=== PATIENT | female | born 1995 | race African-American/Black ===

== ENCOUNTER 2017-05-26 11:01 | Emergency (ER) | payer OTHER ==
[2017-05-26 12:17] LABS: URINE HCG POC HCG NEGATIVE (Negative)
[2017-05-26 12:52] LABS: CLARITY,URINE CLEAR; COLOR,URINE YELLOW; GLUCOSE,URINE 100 mg/dL (NEG)
[2017-05-26 12:53] LABS: BACTERIA,URINE FEW /HPF (0-FEW); BILIRUBIN,URINE NEGATIVE (NEG); NITRITE,URINE NEGATIVE (NEG); PH,URINE 8.5; PROTEIN,URINE TRACE mg/dL (NEG-TRACE); RBC,URINE OCC /HPF (0-2); SQUAMOUS EPITHELIAL CELL,UR MANY /LPF; UROBILINOGEN,URINE 0.2 mg/dL (0.2 mg/dL)
[2017-05-26] MEDS: cefTRIAXone IM 250 MG VIAL IM (13:03)
[2017-05-26] MEDS: AZITHROMYCIN 250 MG TABLET. PO (13:06)
[2017-05-26] MEDS: metroNIDAZOLE 500 MG TABLET PO (13:07)
== END 2017-05-26 13:20 | disposition home or self-care (01) ==
LOC: ER 11:01
DX: J02.8 Acute pharyngitis due to other specified organisms (principal); B97.89 Other viral agents as the cause of diseases classified elsewhere; Z20.2 Contact with and (suspected) exposure to infections with a predominantly sexual mode of transmission
CPT/HCPCS: 81001; 81025; 87491; 87591; 96372; 99284; J0696; Q0144

== ENCOUNTER 2017-08-09 10:50 | Emergency (ER) | payer OTHER ==
[2017-08-09 11:21] LABS: URINE HCG POC HCG NEGATIVE (Negative)
[2017-08-09 11:25] LABS: BILIRUBIN,URINE NEGATIVE (NEG); CLARITY,URINE CLEAR; COLOR,URINE YELLOW; GLUCOSE,URINE NEGATIVE (NEG); NITRITE,URINE NEGATIVE (NEG); PH,URINE 6.5; PROTEIN,URINE NEGATIVE (NEG-TRACE)
[2017-08-09 11:36] LABS: BACTERIA,URINE FEW /HPF (0-FEW); RBC,URINE OCC /HPF (0-2); SQUAMOUS EPITHELIAL CELL,UR MOD /LPF
[2017-08-09] MEDS: cefTRIAXone IM 250 MG VIAL IM (14:10)
[2017-08-09] MEDS: metroNIDAZOLE 500 MG TABLET PO (14:10)
[2017-08-09] MEDS: AZITHROMYCIN 250 MG TABLET. PO (14:10)
[2017-08-10 13:25] LABS: CHLAMYDIA PROBE Negative (Negative); GC PROBE Positive (Negative)
== END 2017-08-09 14:23 | disposition home or self-care (01) ==
LOC: ER 14:23
DX: N39.0 Urinary tract infection, site not specified (principal); Z20.2 Contact with and (suspected) exposure to infections with a predominantly sexual mode of transmission
CPT/HCPCS: 81001; 81025; 87086; 87491; 87591; 96372; 99284-25; J0696; Q0111; Q0144

== ENCOUNTER 2018-04-11 15:56 | Emergency (ER) | payer OTHER ==
[~2018-04-11] VITALS: Ht 152.4 cm; Wt 42.3 kg
[~2018-04-11 15:56] MED LIST: ACET325T9 PO; AZIT1PAC PO; NITR100C62 PO; SULF1TAB24 PO
[2018-04-11 16:45] VITALS: BP 109/59
[2018-04-11] MEDS ORDERED: METH4TAB2 PO (17:11)
[2018-04-11] MEDS ORDERED: AZIT250T6 PO (17:11)
[2018-04-11] MEDS ORDERED: IBUP-1007 PO (17:12)
--- NOTE | 2018-04-11 17:12 | PHYS DOC ---
Past Medical History Past Medical History: STD Additional Past Medical Histor: trichomoniaisis Past Surgical History: Alcohol Use: None Drug Use: None Adult General Chief Complaint Chief Complaint: COUGH HPI HPI Patient is a 22 year old female who presents with her last week has had asthma for years, headache, cough with yellow mucus. Patient has not been taking any medications. Review of Systems Review of Systems Constitutional: fever or chills [] Eyes: Denies change in visual acuity, redness, or eye pain [] HENT: nasal congestion or denies sore throat [] Respiratory: cough or denies shortness of breath [] Cardiovascular: No additional information not addressed in HPI [] GI: Denies abdominal pain, nausea, vomiting, bloody stools or diarrhea [] : Denies dysuria or hematuria [] Musculoskeletal: Denies back pain or joint pain [] Integument: Denies rash or skin lesions [] Neurologic: Denies headache, focal weakness or sensory changes [] Endocrine: Denies polyuria or polydipsia [] All other systems were reviewed and found to be within normal limits, except as documented in this note. Allergies Allergies Allergies Coded Allergies Type Severity Reaction Last Updated Verified No Known Drug Allergies 10/03/15 No Physical Exam Physical Exam Constitutional: Well developed, well nourished, no acute distress, non-toxic appearance. [] HENT: Normocephalic, atraumatic, bilateral external ears normal, oropharynx moist, no oral exudates, nose normal. bilateral boggy tympanics. sinus tenderness. [] Eyes: PERRLA, EOMI, conjunctiva normal, no discharge. [] Neck: Normal range of motion, no tenderness, supple, no stridor. [] Cardiovascular:Heart rate regular rhythm, no murmur [] Lungs & Thorax: Bilateral breath sounds clear to auscultation [] Abdomen: Bowel sounds normal, soft, no tenderness, no masses, no pulsatile masses. [] Skin: Warm, dry, no erythema, no rash. [] Back: No tenderness, no CVA tenderness. [] Extremities: No tenderness, no cyanosis, no clubbing, ROM intact, no edema. [] Neurologic: Alert and oriented X 3, normal motor function, normal sensory function, no focal deficits noted. [] Psychologic: Affect normal, judgement normal, mood normal. [] Current Patient Data Vital Signs Vital Signs Date Time Temp Pulse Resp B/P (MAP) Pulse Ox O2 Delivery O2 Flow Rate FiO2 04/11/18 16:45 98.7 84 16 109/59 (76) 96 Room Air 98.7 EKG EKG [] Radiology/Procedures Radiology/Procedures [] Course & Med Decision Making Course & Med Decision Making Patient is a 22 year old female who presents with her last week has had asthma for years, headache, cough with yellow mucus. Patient has not been taking any medications. Alert and oriented. Looks the same gait. Speaks in full clear sentences. Patient is in no respiratory distress. Bilateral ear tympanic are boggy in color. Lungs are clear to auscultation lobes. Throat is pink without exudates. Abdomen is soft and nontender. Patient denies nausea, vomiting, diarrhea, fevers. Patient does have sinus congestion with some tenderness to her sinuses with palpation. Patient received antibiotic prescription and Medrol Dosepak is told to continue drinking plenty of fluids and use Tylenol or ibuprofen for pain relief. Patient is to follow-up with her primary care provider as soon as possible. Dragon Disclaimer Dragon Disclaimer This electronic medical record was generated, in whole or in part, using a voice recognition dictation system. Departure Departure Impression: Primary Impression: URI (upper respiratory infection) Disposition: 01 HOME, SELF-CARE Condition: STABLE Referrals: MONICO VILLEDA MD (PCP) Patient Instructions: Upper Respiratory Infection, Adult Additional Instructions: Follow-up with her primary care in next 3-5 days. Take medications as prescribed. Take Tylenol or ibuprofen every 46 hours. Drink plenty of fluids. Scripts Ibuprofen (IBUPROFEN) 600 Mg Tablet 600 MG PO PRN Q6HRS PRN for INFLAMMATION, #20 TAB Prov: JOE ELDRIDGE [employer]ACHINE 04/11/18 Methylprednisolone (MEDROL) 4 Mg Tab.ds.pk 1 PKG PO UD, #1 PKG Prov: JOE ELDRIDGE [employer]ACH[employer] 04/11/18 Azithromycin (AZITHROMYCIN TABLET) 250 Mg Tablet 1 PKG PO UD, #6 TAB Prov: JOE ELDRIDGE [employer] 04/11/18 Problem Qualifiers Primary Impression: URI (upper respiratory infection) URI type: unspecified URI Qualified Codes: J06.9 - Acute upper respiratory infection, unspecified BAFUSJOE SE[employer] TAPER MACHINE Apr 11, 2018 17:12
== END 2018-04-11 17:25 | disposition home or self-care (01) ==
LOC: ER 15:56
DX: J06.9 Acute upper respiratory infection, unspecified (principal); R51 Headache
CPT/HCPCS: 99283

== ENCOUNTER 2019-02-06 09:01 | Emergency (ER) | payer BC, MEDICAID, OTHER ==
[~2019-02-06] VITALS: Ht 154.9 cm; Wt 40.8 kg
[~2019-02-06 09:01] MED LIST changes: +AZIT250T6 PO; +IBUP-1007 PO; +METH4TAB2 PO
[2019-02-06] MEDS ORDERED: IV NORMAL SALINE 1000ML BAG 1,000 ML IV ONE (09:30)
[2019-02-06 09:55] LABS: BILIRUBIN,URINE NEGATIVE (NEG); CLARITY,URINE CLEAR; COLOR,URINE YELLOW; NITRITE,URINE NEGATIVE (NEG); PH,URINE 7.5; PROTEIN,URINE NEGATIVE (NEG-TRACE)
[2019-02-06 10:02] LABS: BASO % 0 % (0-3); EOS % 0 % (0-3); HEMATOCRIT 37.1 % (36.0-47.0); HEMOGLOBIN 12.3 g/dL (12.0-15.5); LYMPH % 34 % (24-48); MEAN CORPUSCULAR HEMOGLOBIN 28 pg (25-35); MEAN CORPUSCULAR HGB CONC 33 g/dL (31-37); MEAN CORPUSCULAR VOLUME 83 fL (79-100); MONO # 0.2 x10^3/uL (0.0-1.1); MONO % 8 % (0-9); NEUT # 1.8 x10^3/uL (1.8-7.7); NEUT % 58 % (31-73); PLATELET COUNT 200 x10^3/uL (140-400); RED BLOOD COUNT 4.46 x10^6/uL (3.50-5.40); RED CELL DISTRIBUTION WIDTH 13.5 % (11.5-14.5)
--- NOTE | 2019-02-06 10:02 | EKG ---
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
[2019-02-06 10:06] LABS: RBC,URINE OCC /HPF (0-2); SQUAMOUS EPITHELIAL CELL,UR FEW /LPF
[2019-02-06 10:07] LABS: BACTERIA,URINE FEW /HPF (0-FEW)
[2019-02-06 10:13] LABS: CALCIUM 8.9 mg/dL (8.5-10.1); CREATININE 0.5 mg/dL (0.6-1.0); GFR 183.4; POTASSIUM 3.8 mmol/L (3.5-5.1)
--- NOTE | 2019-02-06 10:18 | PHYS DOC ---
Past Medical History Past Medical History: STD, Other Additional Past Medical Histor: trichomoniaisis Past Surgical History: Alcohol Use: None Drug Use: None Adult General Chief Complaint Chief Complaint: ABDOMINAL PAIN HPI HPI Patient is a 23 year old AA female who presents to the ER with complaints of a syncopal episode yesterday while at work. Pt states she became hot all over then felt some pain in her lower abdomen and then she fainted but did not lose consciousness, pt states he was aware of what was happening the entire time. She denies hitting her head, pt states after she fainted she had a severe headache for a short while. She rested for a bit then went on to finish her work day. Pt denies any chest pain, palpitations, numbness, tingling, or weakness at this time. Pt states she took a test last night and there was possibly a faint positive outcome. She states she missed her last depo shot and has been having unprotected intercourse. Her LMP was sometime last month. She is 5, para 5, this would be her 6th . She currently denies any complaints. She denies any recent nausea, vomiting, diarrhea, fever, dysuria, hematuria, vaginal bleeding, or irregular vaginal discharge. She currently denies any pain. All other ROS is neg unless otherwise noted in HPI. Review of Systems Review of Systems See Above Current Medications Current Medications Current Medications Medications (Trade) Dose Ordered Sig/Xuan Start Time Stop Time Status Last Admin Dose Admin Sodium Chloride 1,000 ml @ 1,000 mls/hr 1X ONCE 02/06/19 09:30 02/06/19 10:29 DC 02/06/19 10:01 1,000 MLS/HR Allergies Allergies Allergies Coded Allergies Type Severity Reaction Last Updated Verified No Known Drug Allergies 10/03/15 No Physical Exam Physical Exam See Above Constitutional: Well developed, well nourished, no acute distress, non-toxic jaren earance. [] HENT: Normocephalic, atraumatic, bilateral external ears normal, nose normal. [] Eyes: PERRLA, EOMI, conjunctiva normal, no discharge. [] Neck: Normal range of motion, no stridor. [] Cardiovascular:Heart rate regular rhythm, no murmur [] Lungs & Thorax: Bilateral breath sounds clear to auscultation [] Abdomen: Bowel sounds normal, soft, no tenderness, no masses, no pulsatile masses. [] Skin: Warm, dry, no erythema, no rash. [] Back: No tenderness Extremities: No cyanosis, ROM intact, no edema. [] Neurologic: Alert and oriented X 3, no focal deficits noted. [] Psychologic: Affect normal, judgement normal, mood normal. [] Current Patient Data Vital Signs Vital Signs Date Time Temp Pulse Resp B/P (MAP) Pulse Ox O2 Delivery O2 Flow Rate FiO2 02/06/19 11:03 80 16 126/67 (86) 100 Room Air 02/06/19 09:10 98.4 98.4 Lab Values Laboratory Tests Test 02/06/19 09:45 02/06/19 09:47 02/06/19 09:52 Urine Collection Type Unknown Urine Color Yellow Urine Clarity Clear Urine pH 7.5 Urine Specific [place] 1.015 Urine Protein Negative mg/dL (NEG-TRACE) Urine Glucose (UA) Negative mg/dL (NEG) Urine Ketones (Stick) Negative mg/dL (NEG) Urine Blood Negative (NEG) Urine Nitrite Negative (NEG) Urine Bilirubin Negative (NEG) Urine Urobilinogen Dipstick 1.0 mg/dL (0.2 mg/dL) Urine Leukocyte Esterase Small (NEG) Urine RBC Occ /HPF (0-2) Urine WBC 1-4 /HPF (0-4) Urine Squamous Epithelial Cells Few /LPF Urine Bacteria Few /HPF (0-FEW) POC Urine HCG, Qualitative Hcg negative (Negative) White Blood Count 3.0 x10^3/uL (4.0-11.0) L Red Blood Count 4.46 x10^6/uL (3.50-5.40) Hemoglobin 12.3 g/dL (12.0-15.5) Hematocrit 37.1 % (36.0-47.0) Mean Corpuscular Volume 83 fL (79-100) Mean Corpuscular Hemoglobin 28 pg (25-35) Mean Corpuscular Hemoglobin Concent 33 g/dL (31-37) Red Cell Distribution Width 13.5 % (11.5-14.5) Platelet Count 200 x10^3/uL (140-400) Neutrophils (%) (Auto) 58 % (31-73) Lymphocytes (%) (Auto) 34 % (24-48) Monocytes (%) (Auto) 8 % (0-9) Eosinophils (%) (Auto) 0 % (0-3) Basophils (%) (Auto) 0 % (0-3) Neutrophils # (Auto) 1.8 x10^3/uL (1.8-7.7) Lymphocytes # (Auto) 1.0 x10^3/uL (1.0-4.8) Monocytes # (Auto) 0.2 x10^3/uL (0.0-1.1) Eosinophils # (Auto) 0.0 x10^3/uL (0.0-0.7) Basophils # (Auto) 0.0 x10^3/uL (0.0-0.2) Sodium Level 141 mmol/L (136-145) Potassium Level 3.8 mmol/L (3.5-5.1) Chloride Level 104 mmol/L (98-107) Carbon Dioxide Level 27 mmol/L (21-32) Anion Gap 10 (6-14) Blood Urea Nitrogen 8 mg/dL (7-20) Creatinine 0.5 mg/dL (0.6-1.0) L Estimated GFR (Cockcroft-Gault) 183.4 BUN/Creatinine Ratio 16 (6-20) Glucose Level 90 mg/dL (70-99) Calcium Level 8.9 mg/dL (8.5-10.1) Total Bilirubin 0.2 mg/dL (0.2-1.0) Aspartate Amino Transferase (AST) 8 U/L (15-37) L Alanine Aminotransferase (ALT) 7 U/L (14-59) L Alkaline Phosphatase 42 U/L (46-116) L Total Protein 7.7 g/dL (6.4-8.2) Albumin 4.2 g/dL (3.4-5.0) Albumin/Globulin Ratio 1.2 (1.0-1.7) Serum Test, Qualitative Negative (NEG) Laboratory Tests 02/06/19 09:52 Laboratory Tests 02/06/19 09:52 EKG EKG 0929- SR rate 70, no STEMI read by Dr. Tovar[] Radiology/Procedures Radiology/Procedures Orthostatic BPs negative, pt asymptomatic with evaluation.[] PROCEDURE: CHEST PA & LATERAL CHEST PA LATERAL History: Syncopal episode yesterday with chest tightness. Comparison: None. Findings: The cardiomediastinal silhouette is normal. Pulmonary vasculature is normal. The lungs are clear. No pleural effusion or pneumothorax is seen. There is no acute bone abnormality. IMPRESSION: No acute cardiopulmonary process. Course & Med Decision Making Course & Med Decision Making Pertinent Labs and Imaging studies reviewed. (See chart for details) Pt is a 23 year old female who presents for an evaluation following a syncopal episode yesterday at work. Pt reports concerns of . UCG negative CBC: WBC 3.0 otherwise unremarkable, CMP unremarkable, UA unremarkable, UCG negative, HCG qual negative Pt was given 1L of NS in the ER. VSS, EKG no acute changes, CXR normal. [] Dragon Disclaimer Dragon Disclaimer This electronic medical record was generated, in whole or in part, using a voice recognition dictation system. Departure Departure Impression: Primary Impression: Episode of syncope Additional Impression: Negative test Disposition: HOME, SELF-CARE Condition: STABLE Referrals: MONICO VILLEDA MD (PCP) Patient Instructions: Syncope, [id number] Additional Instructions: Increase clear fluids and rest. Both blood and urine tests were negative today. Follow up with your primary care doctor in 1-2 days. Return to the ER if symptoms worsen. Problem Qualifiers Primary Impression: Episode of syncope Syncope type: unspecified Qualified Codes: R55 - Syncope and collapse NANCY SALMON BAR HOST/HOSTESS Feb 06, 2019 10:18
[2019-02-06 10:25] LABS: ALBUMIN 4.2 g/dL (3.4-5.0); ALBUMIN/GLOBULIN RATIO 1.2 (1.0-1.7); TOTAL BILIRUBIN 0.2 mg/dL (0.2-1.0); TOTAL PROTEIN 7.7 g/dL (6.4-8.2)
--- NOTE | 2019-02-06 10:41 | RAD ---
CHEST PA LATERAL History: Syncopal episode yesterday with chest tightness. Comparison: None. Findings: The cardiomediastinal silhouette is normal. Pulmonary vasculature is normal. The lungs are clear. No pleural effusion or pneumothorax is seen. There is no acute bone abnormality. IMPRESSION: No acute cardiopulmonary process. Electronically signed by: John Ferguson MD (02/06/2019 10:38 AM) [id number]
[2019-02-06 11:03] VITALS: BP 126/67
[2019-02-06 11:16] LABS: PREG TEST PT QUAL NEGATIVE (NEG)
== END 2019-02-06 11:26 | disposition home or self-care (01) ==
LOC: ER 09:01
DX: R55 Syncope and collapse (principal); Z32.02 Encounter for pregnancy test, result negative; R10.30 Lower abdominal pain, unspecified; R51 Headache; R07.89 Other chest pain
CPT/HCPCS: 36415; 71046; 80053; 81001; 81025; 84703; 85025; 87086; 93005; 96360; 99285; J7030

== ENCOUNTER 2019-02-22 13:25 | Emergency (ER) | payer MEDICAID ==
[~2019-02-22] VITALS: Ht 154.9 cm; Wt 41.3 kg
[2019-02-22 13:50] VITALS: BP 109/52
[2019-02-22 14:09] LABS: BILIRUBIN,URINE NEGATIVE (NEG); CLARITY,URINE CLEAR; COLOR,URINE YELLOW; NITRITE,URINE NEGATIVE (NEG); PROTEIN,URINE NEGATIVE (NEG-TRACE)
[2019-02-22 14:24] LABS: BACTERIA,URINE 0 /HPF (0-FEW); RBC,URINE OCC /HPF (0-2); SQUAMOUS EPITHELIAL CELL,UR OCC /LPF
--- NOTE | 2019-02-22 14:41 | PHYS DOC ---
Past Medical History Past Medical History: STD, Other Additional Past Medical Histor: trichomoniaisis Past Surgical History: Additional Information: black and milds Alcohol Use: Occasionally Drug Use: None Adult General Chief Complaint Chief Complaint: PAIN ON URINATION HPI HPI Patient is a 23 year old female who presents with low mid abdominal pain and burning with urination. Patient states she was here 2 weeks ago did not follow up with any doctors. She states she went to [facility] who tested her for a transmitted diseases. She states she did not get a phone call back but they told her that she had a yeast infection. Patient states she is still having vaginal discharge that is fishy odor smelling. Patient states that she does not need any sex a transmitted disease treatment today and she will wait for results. Review of Systems Review of Systems GI: low mid abdominal pain, denies nausea, vomiting, bloody stools or diarrhea [] :Vaginal discharge. dysuria or denies hematuria [] All other systems were reviewed and found to be within normal limits, except as documented in this note. Allergies Allergies Allergies Coded Allergies Type Severity Reaction Last Updated Verified No Known Drug Allergies 10/03/15 No Physical Exam Physical Exam Constitutional: Well developed, well nourished, no acute distress, non-toxic appearance. [] HENT: Normocephalic, atraumatic, bilateral external ears normal, oropharynx moist, no oral exudates, nose normal. [] Eyes: PERRLA, EOMI, conjunctiva normal, no discharge. [] Neck: Normal range of motion, no tenderness, supple, no stridor. [] Cardiovascular:Heart rate regular rhythm, no murmur [] Lungs & Thorax: Bilateral breath sounds clear to auscultation [] Abdomen: Bowel sounds normal, soft, no tenderness, no masses, no pulsatile masses. [] Skin: Warm, dry, no erythema, no rash. [] Back: No tenderness, no CVA tenderness. [] Extremities: No tenderness, no cyanosis, no clubbing, ROM intact, no edema. [] Neurologic: Alert and oriented X 3, normal motor function, normal sensory function, no focal deficits noted. [] Psychologic: Affect normal, judgement normal, mood normal. Normal Physical Exam[] Current Patient Data Vital Signs Vital Signs Date Time Temp Pulse Resp B/P (MAP) Pulse Ox O2 Delivery O2 Flow Rate FiO2 02/22/19 13:50 98.2 89 18 109/52 (71) 99 Room Air 98.2 Lab Values Laboratory Tests Test 02/22/19 13:30 Urine Color Yellow Urine Clarity Clear Urine pH 6.0 Urine Specific [place] 1.020 Urine Protein Negative mg/dL (NEG-TRACE) Urine Glucose (UA) Negative mg/dL (NEG) Urine Ketones (Stick) Negative mg/dL (NEG) Urine Blood Trace (NEG) Urine Nitrite Negative (NEG) Urine Bilirubin Negative (NEG) Urine Urobilinogen Dipstick 1.0 mg/dL (0.2 mg/dL) Urine Leukocyte Esterase Trace (NEG) Urine RBC Occ /HPF (0-2) Urine WBC 5-10 /HPF (0-4) Urine Squamous Epithelial Cells Occ /LPF Urine Bacteria 0 /HPF (0-FEW) Urine Mucus Slight /LPF Urine Test Negative (NEG) Microbiology 02/22/19 Wet Prep - Final, Complete EKG EKG [] Radiology/Procedures Radiology/Procedures [] Course & Med Decision Making Course & Med Decision Making No tenderness with palpation to the abdomen is soft and nontender. Skin pink warm and dry. Ambulatory with steady gait. Vital signs within normal limits. Patient denies nausea, vomiting, fever, chest pain, shortness of air, diarrhea, constipation, headache, dizziness, visual changes, numbness or tingling. Lungs are clear to auscultation all lobes. Patient agrees to a pelvic exam to test for bacterial vaginosis and states that she has been diseases. Pelvic Exam: [employer] present Abdomen: Nontender External Genitalia: Normal Skin Speculum: Normal vaginal mucosa, normal cervical discharge Bimanual: No adnexal masses or tenderness, No CMT Dragon Disclaimer Dragon Disclaimer This electronic medical record was generated, in whole or in part, using a voice recognition dictation system. Departure Departure Impression: Primary Impression: Bacterial vaginosis Additional Impression: UTI (lower urinary tract infection) Disposition: 01 HOME, SELF-CARE Condition: STABLE Referrals: MONICO VILLEDA MD (PCP) Patient Instructions: Bacterial Vaginosis, Urinary Tract Infection Additional Instructions: Take medications as prescribed. Take medications with food. Do not drink any alcohol with these medications. Scripts Metronidazole (METRONIDAZOLE) 500 Mg Tablet 1 TAB PO BID for 7 Days, #14 TAB 0 Refills Prov: JOE ELDRIDGE APRN 02/22/19 Cephalexin (KEFLEX) 500 Mg Capsule 1 CAP PO BID for 7 Days, #14 CAP 0 Refills Prov: JOE ELDRIDGE APRN 02/22/19 Problem Qualifiers JOE ELDRIDGE APRN Feb 22, 2019 14:41
[2019-02-22 14:58] LABS: U PREG PATIENT NEGATIVE (NEG)
[2019-02-22] MEDS ORDERED: METR-34 PO (15:40)
[2019-02-22] MEDS ORDERED: CEPH-264 PO (15:40)
[2019-02-26 04:08] LABS: GC PROBE Negative (Negative)
== END 2019-02-22 15:45 | disposition home or self-care (01) ==
LOC: ER 13:25
DX: N39.0 Urinary tract infection, site not specified (principal); N76.0 Acute vaginitis; B96.89 Other specified bacterial agents as the cause of diseases classified elsewhere; B96.4 Proteus (mirabilis) (morganii) as the cause of diseases classified elsewhere
CPT/HCPCS: 81001; 81025; 87086; 87491; 87591; 99284; Q0111

== ENCOUNTER 2019-05-23 19:45 | Emergency (ER) | payer BC, MEDICAID ==
[~2019-05-23] VITALS: Ht 154.9 cm; Wt 39.5 kg
[~2019-05-23 19:45] MED LIST changes: +CEPH-264 PO; +METR-34 PO
[2019-05-23 19:54] VITALS: BP 117/58
--- NOTE | 2019-05-23 20:02 | PHYS DOC ---
Past Medical History Past Medical History: STD, Other Additional Past Medical Histor: trichomoniaisis Past Surgical History: Smoking Status: Current Every Day Smoker Alcohol Use: Occasionally Drug Use: None Adult General Chief Complaint Chief Complaint: COUGH HPI HPI Patient is a 23 year old female who presents in the ED complaining of a productive cough for 2-1/2 days. Patient denies any fever. Denies any recent travel outside the [facility], denies being in contact with anyone being investigated or currently has COV19 Review of Systems Review of Systems Constitutional: Denies fever or chills [] Eyes: Denies change in visual acuity, redness, or eye pain [] HENT: Denies nasal congestion or sore throat [] Respiratory: Reports cough, denies shortness of breath [] Cardiovascular: No additional information not addressed in HPI [] GI: Denies abdominal pain, nausea, vomiting, bloody stools or diarrhea [] : Denies dysuria or hematuria [] Musculoskeletal: Denies back pain or joint pain [] Integument: Denies rash or skin lesions [] Neurologic: Denies headache, focal weakness or sensory changes [] All other systems were reviewed and found to be within normal limits, except as documented in this note. Allergies Allergies Allergies Coded Allergies Type Severity Reaction Last Updated Verified No Known Drug Allergies 10/03/15 No Physical Exam Physical Exam Constitutional: Well developed, well nourished, no acute distress, non-toxic ap pearance. [] HENT: Normocephalic, atraumatic, bilateral external ears normal, oropharynx moist, no oral exudates, nose normal. [] Eyes: PERRLA, EOMI, conjunctiva normal, no discharge. [] Neck: Normal range of motion, no tenderness, supple, no stridor. [] Cardiovascular:Heart rate regular rhythm, no murmur [] Lungs & Thorax: Bilateral breath sounds clear to auscultation [] Abdomen: Bowel sounds normal, soft, no tenderness, no masses, no pulsatile masses. [] Skin: Warm, dry, no erythema, no rash. [] Back: No tenderness, no CVA tenderness. [] Extremities: No tenderness, no cyanosis, no clubbing, ROM intact, no edema. [] Neurologic: Alert and oriented X 3, normal motor function, normal sensory function, no focal deficits noted. [] Psychologic: Affect normal, judgement normal, mood normal. [] EKG EKG [] Radiology/Procedures Radiology/Procedures [] Course & Med Decision Making Course & Med Decision Making Pertinent Labs and Imaging studies reviewed. (See chart for details) This is a 23-year-old female patient who presents to the ED today complaining of a cough for 2-1/2 days. Patient is afebrile. Symptoms are likely viral. Supportive care measures recommended. We discussed [id number]-[id number]-[id number] remedies. She is a smoker, she was advised to consider smoking cessation. Dragon Disclaimer Dragon Disclaimer This electronic medical record was generated, in whole or in part, using a voice recognition dictation system. Departure Departure Impression: Primary Impression: Cough Additional Impression: Smoking addiction Disposition: 01 HOME, SELF-CARE Condition: STABLE Referrals: MONICO VILLEDA MD (PCP) JAGDISH VOGT MD follow up in 1 week Patient Instructions: Cough, Adult, [id number]-Opqw, Smoking Cessation, Tips For Success Additional Instructions: You were seen for a cough. Consider smoking cessation. Use mryy-[id number]-obkugnd cough and cold medicines as needed for your symptoms. Problem Qualifiers DIMA DARLING APRN May 23, 2019 20:02
== END 2019-05-23 20:06 | disposition home or self-care (01) ==
LOC: ER 19:45
DX: R05 Cough (principal); A59.9 Trichomoniasis, unspecified; F17.200 Nicotine dependence, unspecified, uncomplicated; Z98.890 Other specified postprocedural states
CPT/HCPCS: 99281

== ENCOUNTER 2019-05-29 11:20 | Emergency (ER) | payer MEDICAID ==
[~2019-05-29] VITALS: Ht 154.9 cm; Wt 44.0 kg
[2019-05-29 12:22] LABS: BILIRUBIN,URINE NEGATIVE (NEG); CLARITY,URINE CLEAR; COLOR,URINE YELLOW; NITRITE,URINE NEGATIVE (NEG); PROTEIN,URINE NEGATIVE (NEG-TRACE)
[2019-05-29] MEDS ORDERED: AZITHROMYCIN 250 MG TABLET. PO ONE (12:30)
[2019-05-29] MEDS ORDERED: cefTRIAXone IM 250 MG VIAL IM ONE (12:30)
--- NOTE | 2019-05-29 12:35 | PHYS DOC ---
Past Medical History Past Medical History: No Pertinent History, STD, Other Additional Past Medical Histor: trichomoniaisis Past Surgical History: Smoking Status: Current Every Day Smoker Alcohol Use: Occasionally Drug Use: None Adult General Chief Complaint Chief Complaint: PAIN ON URINATION [facility] HPI Patient is a 23 year old AA female who presents to the emergency department with complaints of left low back pain, suprapubic pain that is worse after urination, abnormal urination, left low back pain, and white vaginal discharge f or a week. She denies any nausea, vomiting, abdominal pain, diarrhea, fever, hematuria, irregular vaginal discharge, vaginal odor, foul smelling urine, cough, shortness of breath, or body aches. She currently rates her pelvic pain a 10/10 on the pain scale, she denies any alleviating factors. Patient reports that she would like to be tested for sexually transmitted infection, she denies any known exposure to any STIs. Review of Systems Review of Systems Complete ROS is negative unless otherwise noted in HPI. Current Medications Current Medications Current Medications Medications (Trade) Dose Ordered Sig/Xuan Start Time Stop Time Status Last Admin Dose Admin Azithromycin (Zithromax) 1,000 mg 1X ONCE 05/29/19 12:30 05/29/19 12:31 DC 05/29/19 13:08 1,000 MG Ceftriaxone Sodium (Rocephin Im) 250 mg 1X ONCE 05/29/19 12:30 05/29/19 12:31 DC 05/29/19 13:08 250 MG Allergies Allergies Allergies Coded Allergies Type Severity Reaction Last Updated Verified No Known Drug Allergies 10/03/15 No Physical Exam Physical Exam See Above Constitutional: Well developed, well nourished, no acute distress, non-toxic appearance. HENT: Normocephalic, atraumatic, bilateral external ears normal, nose normal. Eyes: PERRLA, EOMI, conjunctiva normal, no discharge. Neck: Normal range of motion, supple, no stridor. Cardiovascular: Heart rate regular rhythm Lungs & Thorax: Respirations even and unlabored, no retractions, no respiratory distress Pelvic Exam: [employer]visor present Sandra PERALTA Abdomen: Nontender, soft External Genitalia: Normal Skin Speculum: Normal vaginal mucosa, normal cervical discharge, large amount of white vaginal discharge Bimanual: No adnexal masses, Left adnexal tenderness,+CMT Skin: Warm, dry, no erythema, no rash. Back: L CVA tenderness Extremities: No cyanosis, ROM intact, no edema. Neurologic: Alert and oriented X 3, no focal deficits noted. Psychologic: Affect normal, judgement normal, mood normal. Current Patient Data Vital Signs Vital Signs Date Time Temp Pulse Resp B/P (MAP) Pulse Ox O2 Delivery O2 Flow Rate FiO2 05/29/19 13:51 88 16 100 05/29/19 11:45 98.1 108/59 (75) Room Air 98.1 Lab Values Laboratory Tests Test 05/29/19 11:54 05/29/19 11:55 Urine Collection Type Void Urine Color Yellow Urine Clarity Clear Urine pH 8.0 (<5.0-8.0) Urine Specific [place] 1.015 (1.000-1.030) Urine Protein Negative mg/dL (NEG-TRACE) Urine Glucose (UA) Negative mg/dL (NEG) Urine Ketones (Stick) Negative mg/dL (NEG) Urine Blood Negative (NEG) Urine Nitrite Negative (NEG) Urine Bilirubin Negative (NEG) Urine Urobilinogen Dipstick 1.0 mg/dL (0.2 mg/dL) Urine Leukocyte Esterase Negative (NEG) Urine RBC 0 /HPF (0-2) Urine WBC Occ /HPF (0-4) Urine Squamous Epithelial Cells Many /LPF Urine Bacteria 0 /HPF (0-FEW) POC Urine HCG, Qualitative Hcg negative (Negative) Microbiology 05/29/19 Wet Prep - Final, Complete EKG EKG [] Radiology/Procedures Radiology/Procedures PROCEDURE: PELVIS ULTRASOUND Examination: PELVIS ULTRASOUND History: Left adnexal tenderness. Cervical motion tenderness on exam. Pelvic pain Comparison/Correlation: None Findings: Transabdominal pelvic ultrasound exam was performed. Uterus measures 7.9 cm x 3.9 cm x 4.2 cm. Myometrium is unremarkable. Endometrial thickness is 0.2 cm. No intrauterine gestation or collection. Right ovary measures 3.2 cm x 3.1 cm x 4.7 cm. Right adnexal cyst measuring 3 cm x 2.6 cm x 2.1 cm present. Left ovary measures 2.9 cm x 2.7 cm x 2.2 cm. Normal ovarian flow on color Doppler imaging is evident. No pelvic free fluid. Fluid-filled bowel is seen about the adnexal regions. Impression: Right adnexal cyst is physiologic in appearance. No suspicious findings. [] Course & Med Decision Making Course & Med Decision Making Pertinent Labs and Imaging studies reviewed. (See chart for details) [] Dragon Disclaimer Dragon Disclaimer This electronic medical record was generated, in whole or in part, using a voice recognition dictation system. Departure Departure Impression: Primary Impression: Bacterial vaginosis Additional Impressions: Concern about STD in female without diagnosis Dysuria Disposition: 01 HOME, SELF-CARE Condition: STABLE Referrals: MONICO VILLEDA MD (PCP) Patient Instructions: Bacterial Vaginosis, [id number], Dysuria, Sexually Transmitted Disease, [id number] Additional Instructions: Fill prescription(s) and use as directed. Avoid bladder irritants such as caffeine, carbonation, and spicy foods. Increase clear fluids. I Recommend that you go to your local health department for comprehensive sexually transmitted disease testing. You have been treated for a suspected gonorrhea and chlamydia. Avoid having intercourse until the results of gonorrhea and chlamydia testing are available, these results will not be available for 48 hours. If one or both of these tests is positive, you need to refrain from intercourse for jaren roximately 1 week following the treatment of any current partners. Follow-up with your primary care doctor if symptoms persist, return to the ER if symptoms worsen. Scripts Metronidazole (FLAGYL) 500 Mg Tablet 1 TAB PO BID, #14 TAB Prov: NANCY SALMON APRN 05/29/19 Problem Qualifiers NANCY SALMON APRN May 29, 2019 12:35
[2019-05-29 12:38] LABS: BACTERIA,URINE 0 /HPF (0-FEW); RBC,URINE 0 /HPF (0-2); SQUAMOUS EPITHELIAL CELL,UR MANY /LPF; WBC,URINE OCC /HPF (0-4)
--- NOTE | 2019-05-29 13:30 | RAD ---
Examination: PELVIS ULTRASOUND History: Left adnexal tenderness. Cervical motion tenderness on exam. Pelvic pain Comparison/Correlation: None Findings: Transabdominal pelvic ultrasound exam was performed. Uterus measures 7.9 cm x 3.9 cm x 4.2 cm. Myometrium is unremarkable. Endometrial thickness is 0.2 cm. No intrauterine gestation or collection. Right ovary measures 3.2 cm x 3.1 cm x 4.7 cm. Right adnexal cyst measuring 3 cm x 2.6 cm x 2.1 cm present. Left ovary measures 2.9 cm x 2.7 cm x 2.2 cm. Normal ovarian flow on color Doppler imaging is evident. No pelvic free fluid. Fluid-filled bowel is seen about the adnexal regions. Impression: Right adnexal cyst is physiologic in appearance. No suspicious findings. Electronically signed by: Fab Nair MD (05/29/2019 1:27 PM) [id number]
[2019-05-29 13:51] VITALS: BP 115/55
[2019-05-29] MEDS ORDERED: METR500T PO (14:02)
[2019-05-30 17:09] LABS: GC PROBE Negative (Negative)
== END 2019-05-29 14:18 | disposition home or self-care (01) ==
LOC: ER 11:20
DX: N76.0 Acute vaginitis (principal); B96.89 Other specified bacterial agents as the cause of diseases classified elsewhere; R30.0 Dysuria; Z20.2 Contact with and (suspected) exposure to infections with a predominantly sexual mode of transmission; F17.200 Nicotine dependence, unspecified, uncomplicated
CPT/HCPCS: 76856; 81001; 81025; 87491; 87591; 99284; J0696; Q0111

== ENCOUNTER 2020-09-02 19:40 | Emergency (ER) | payer MEDICAID ==
[~2020-09-02 19:40] MED LIST changes: +METR500T PO
[2020-09-02 20:27] LABS: BILIRUBIN,URINE NEGATIVE (NEG); CLARITY,URINE CLEAR; COLOR,URINE YELLOW; NITRITE,URINE NEGATIVE (NEG); PROTEIN,URINE NEGATIVE (NEG-TRACE); UROBILINOGEN,URINE 0.2 mg/dL (0.2 mg/dL)
[2020-09-02 20:39] LABS: BACTERIA,URINE 0 /HPF (0-FEW); RBC,URINE RARE /HPF (0-2); WBC,URINE 0 /HPF (0-4)
== END 2020-09-02 20:32 | disposition left against medical advice (07) ==
LOC: ER 19:40
DX: R10.30 Lower abdominal pain, unspecified (principal); Z53.21 Procedure and treatment not carried out due to patient leaving prior to being seen by health care provider
CPT/HCPCS: 81001; 81025

== ENCOUNTER 2021-04-24 13:23 | Emergency (ER) | payer MEDICAID ==
[~2021-04-24] VITALS: Ht 154.9 cm; Wt 43.7 kg
[2021-04-24 13:25] VITALS: BP 103/59
[2021-04-24 14:56] LABS: BILIRUBIN,URINE NEGATIVE (NEG); CLARITY,URINE CLEAR; COLOR,URINE YELLOW; NITRITE,URINE NEGATIVE (NEG); PH,URINE 6.5 (<5.0-8.0); PROTEIN,URINE NEGATIVE (NEG-TRACE)
[2021-04-24 14:59] LABS: U PREG PATIENT NEGATIVE (NEG)
[2021-04-24 15:03] LABS: BACTERIA,URINE MODERATE /HPF (0-FEW)
[2021-04-24 15:04] LABS: RBC,URINE OCC /HPF (0-2); WBC,URINE OCC /HPF (0-4)
[2021-04-24] MEDS ORDERED: METR-34 PO (15:13)
--- NOTE | 2021-04-24 15:13 | PHYS DOC ---
Past Medical History Past Medical History: No Pertinent History, STD, Other Additional Past Medical Histor: trichomoniaisis Past Surgical History: Smoking Status: Current Every Day Smoker Alcohol Use: Occasionally Drug Use: None General Adult EDM: Chief Complaint: ABDOMINAL PAIN HPI: HPI: Patient is a 25 year old female who presents with vaginal discharge and occasional low pelvic discomfort for the past 7 days. Pain occasionally radiates to the left flank. Denies dysuria, urgency, frequency. Vaginal discharge is thick and white. Occasionally "chunky." She has a history of gonorrhea in the remote past, but received adequate treatment. She is sexually active with her . Unsure whether he is having any symptoms of discharge or otherwise. No nausea, vomiting, diarrhea, or fever. Review of Systems: Review of Systems: Constitutional: Denies fever or chills. [] Eyes: Denies change in visual acuity. [] HENT: Denies nasal congestion or sore throat. [] Respiratory: Denies cough or shortness of breath. [] Cardiovascular: Denies chest pain or edema. [] GI: Denies abdominal pain, nausea, vomiting, bloody stools or diarrhea. [] : Denies dysuria. Reports vaginal discharge and pelvic discomfort. Musculoskeletal: Denies back pain or joint pain. [] Integument: Denies rash. [] Neurologic: Denies headache, focal weakness or sensory changes. [] Psychiatric: Denies depression or anxiety. [] Heart Score: C/O Chest Pain: No Allergies: Allergies: Allergies Coded Allergies Type Severity Reaction Last Updated Verified No Known Drug Allergies 10/03/15 No Physical Exam: PE: Constitutional: Well developed, well nourished, no acute distress, non-toxic appearance. [] HENT: Normocephalic, atraumatic Cardiovascular:Heart rate regular rhythm, no murmur [] Lungs & Thorax: Bilateral breath sounds clear to auscultation [] Abdomen: Soft, non-tender abd exam in all quadrants. Pelvic: Deferred. Patient is in the same room as her 4 year old son that is also being seen as a patient. Skin: Warm, dry, no erythema, no rash. [] Back: No tenderness, no CVA tenderness. [] Extremities: No tenderness, no cyanosis, no clubbing, ROM intact, no edema. [] Neurologic: Alert and oriented X 3, normal motor function, normal sensory function, no focal deficits noted. [] Psychologic: Affect normal, judgement normal, mood normal. [] Current Patient Data: Labs: RUN DATE: 04/24/21 [facility] *LIVE* PAGE 1 RUN TIME: 1503 Specimen Inquiry PATIENT: LAUREL LARES ACCT: [id number] LOC: HA U: [id number] AGE/SX: 25/ ROOM: RE04/24/[address]: KJ MOULTON MD : 1995 BED: DIS: STATUS: PRE ER TLOC: SPEC #: [id number] DIANELYS: 04/24/21 STATUS: COMP REQ #: [id number] RECD: 04/24/21 [facility] DR: KJ MOULTON MD SOURCE: VAGINAL ENTR: 04/24/21-[address]: MONICO VILLEDA MD [facility]: ORDERED: WET PREP COMMENTS: Has specimen been collected/obtained? Y Procedure Result WET PREP Final YEAST NONE SEEN TRICHOMONAS NONE SEEN CLUE CELLS CLUE CELLS PRESENT ALTERED COREY ALTERED COREY PRESENT SUGGESTIVE OF BACTERIAL VAGINOSIS SQUAMOUS EPS MANY --------- --- Laboratory Tests Test 04/24/21 14:45 04/24/21 14:49 Urine Collection Type Unknown Urine Color Yellow Urine Clarity Clear Urine pH 6.5 Urine Specific [place] 1.020 Urine Protein Negative mg/dL Urine Glucose (UA) Negative mg/dL Urine Ketones (Stick) Negative mg/dL Urine Blood Negative Urine Nitrite Negative Urine Bilirubin Negative Urine Urobilinogen Dipstick 1.0 mg/dL Urine Leukocyte Esterase Negative Urine RBC Occ /HPF Urine WBC Occ /HPF Urine Squamous Epithelial Cells Mod /LPF Urine Bacteria Moderate /HPF Urine Mucus Mod /LPF Urine Test Negative Bedside Urine HCG, Qualitative Hcg negative Vital Signs: Vital Signs Date Time Temp Pulse Resp B/P (MAP) Pulse Ox O2 Delivery O2 Flow Rate FiO2 04/24/21 13:25 98.8 83 16 103/59 (74) 97 Room Air 98.8 EKG: EKG: [] Radiology/Procedures: Radiology/Procedures: [] Course & Med Decision Making: Course & Med Decision Making Pertinent Labs and Imaging studies reviewed. (See chart for details) Patient 25-year-old female who presents with 1 week of thick vaginal discharge and mild lower pelvic discomfort. On arrival is afebrile, vital signs normal. Well-appearing on exam. No significant abdominal tenderness. Pelvic examination was deferred, as the patient is sharing a room with her small child who is also registered as a patient. UA not convincing for urinary tract infection. Wet prep shows evidence of bacterial vaginosis. She is requesting empiric treatment for go norrhea/chlamydia. Ceftriaxone 500 mg IM to be given here. Will be given Flagyl 500 mg BID for 1 week and doxycycline 100 mg BID for 7 days. 1510 Eb Disclaimer: Drag[place] Disclaimer: This electronic medical record was generated, in whole or in part, using a voice recognition dictation system. Departure Departure Impression: Primary Impression: Bacterial vaginosis Disposition: HOME / SELF CARE / HOMELESS Condition: STABLE Referrals: MONICO VILLEDA MD (PCP) Patient Instructions: Bacterial Vaginosis Additional Instructions: It appears you have bacterial vaginosis. This will require treatment with an antibiotic. Metronidazole 500 mg twice daily for 7 days DO NOT take metronidazole with alcohol, because it will make you extremely ill. You are also being tested for gonorrhea/chlamydia. If this is positive you should receive a phone call notifying you of need for further treatment in the next 2-3 days. Scripts Doxycycline Hyclate (DOXYCYCLINE HYCLATE) 100 Mg Capsule 1 CAP PO BID for 7 Days, #14 CAP 0 Refills Prov: KJ MOULTON MD 04/24/21 Metronidazole (METRONIDAZOLE) 500 Mg Tablet 1 TAB PO BID for 7 Days, #14 TAB 0 Refills Prov: KJ MOULTON MD 04/24/21 KJ MOULTON MD Apr 24, 2021 15:13
[2021-04-24] MEDS ORDERED: DOXY100C3 PO (15:38)
[2021-04-24] MEDS ORDERED: cefTRIAXone IM 500 MG VIAL. IM ONE (15:45)
[2021-04-26 20:08] LABS: GC PROBE Negative (Negative)
== END 2021-04-24 15:48 | disposition home or self-care (01) ==
LOC: ER 13:23
DX: N76.0 Acute vaginitis (principal); B96.89 Other specified bacterial agents as the cause of diseases classified elsewhere; R10.2 Pelvic and perineal pain
CPT/HCPCS: 81001; 81025; 87086; 87491; 87591; 96372; 99283; J0696; Q0111